=== PATIENT | female | born 1935 | race Caucasian/White ===

== ENCOUNTER 2020-06-30 13:43 | Emergency (ER) | payer MEDICARE ==
[2020-06-30 16:03] LABS: HEMOGLOBIN 13.9 gm/dl (12.3-15.3); RED BLOOD COUNT 4.31 M/UL (4.00-5.10); WHITE BLOOD COUNT 11.4 K/UL (4.5-11.0)
[2020-06-30 16:33] LABS: BUN/CREATININE RATIO 13 (0-10)
[2020-06-30] MEDS ORDERED: KEFLEX250 MG PO (16:42)
[2020-06-30] MEDS ORDERED: BACTROBAN OINT22 GM EXT (16:42)
== END 2020-06-30 17:25 | disposition home or self-care (01) ==
LOC: ER1 13:43
PROVIDERS: Emergency Medicine
DX: S01.01XA Laceration without foreign body of scalp, initial encounter (principal); E87.1 Hypo-osmolality and hyponatremia; I10 Essential (primary) hypertension; Z23 Encounter for immunization; Z98.890 Other specified postprocedural states; Z91.81 History of falling; W18.30XA Fall on same level, unspecified, initial encounter
CPT/HCPCS: 70450; 71045; 80053; 82550; 82553; 83874; 84484; 85025; 90471; 90715; 99284

== ENCOUNTER 2021-01-26 09:59 | Emergency (ER) | payer MEDICARE ==
[~2021-01-26 09:59] MED LIST: BACTROBAN OINT22 GM EXT; KEFLEX250 MG PO
[2021-01-26 11:32] LABS: HEMOGLOBIN 13.1 gm/dl (12.3-15.3); RED BLOOD COUNT 3.91 M/UL (4.00-5.10); WHITE BLOOD COUNT 11.7 K/UL (4.5-11.0)
[2021-01-26 12:26] LABS: BUN/CREATININE RATIO 12 (0-10)
[2021-01-26] MEDS ORDERED: PERCOCET 5-3251 EACH PO (13:50)
== END 2021-01-26 14:45 | disposition home or self-care (01) ==
LOC: ER1 09:59
PROVIDERS: Emergency Medicine
DX: S42.202A Unspecified fracture of upper end of left humerus, initial encounter for closed fracture (principal); S01.81XA Laceration without foreign body of other part of head, initial encounter; W01.0XXA Fall on same level from slipping, tripping and stumbling without subsequent striking against object, initial encounter; Y92.009 Unspecified place in unspecified non-institutional (private) residence as the place of occurrence of the external cause
CPT/HCPCS: 12011; 70450; 71045; 73030; 80053; 82550; 82553; 83874; 83880; 84484; 85025; 93005; 99285

== ENCOUNTER → 2021-08-04 | Outpatient (CLI) | payer MEDICARE ==
[~2021-08-04] MED LIST changes: +PERCOCET 5-3251 EACH PO
== END ==
LOC: RAD 14:18
DX: R06.02 Shortness of breath (principal); R05.1 Acute cough
CPT/HCPCS: 71046